=== PATIENT | female | born 1960 | race Caucasian/White ===

== ENCOUNTER → 2023-09-11 10:40 | Outpatient (REF) | payer OTHER, SELFPAY | LOC: HWRCS 10:40 | PROVIDERS: ATTENDING PHYSICIAN Nurse Practitioner Family | DX: I48.19 Other persistent atrial fibrillation (principal); I50.22 Chronic systolic (congestive) heart failure; I34.0 Nonrheumatic mitral (valve) insufficiency; F41.1 Generalized anxiety disorder; F17.200 Nicotine dependence, unspecified, uncomplicated; E55.9 Vitamin D deficiency, unspecified; Z13.89 Encounter for screening for other disorder | CPT/HCPCS: 93306 ==